=== PATIENT | female | born 1990 ===

== ENCOUNTER 2019-03-07 18:28 | Emergency (ER) | payer SELFPAY ==
--- NOTE | 2019-03-07 22:22 | Event Note ---
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 Further treatment and workup at subsequent clinical providers discretion. Patient/guardian urged not to elope from the ED as their condition may be serious if not clinically assessed and managed. Initial orders include:
[2019-03-08] MEDS ORDERED: CYCLOBENZAPRINE 10 MG TAB PO ONE (00:22)
[2019-03-08] MEDS ORDERED: ACETAMINOPHEN 500 MG TAB PO ONE (00:23)
--- NOTE | 2019-03-08 01:02 | Emergency Department Report ---
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 Patient states that the pain has been worsening and radiating to her right thigh. Patient denies numbness and tingling or weakness of lower extremities bilaterally, vaginal bleeding, abdominal pain, dizziness, syncope, chest pain, neck pain, head and neck injuries or bilateral shoulder pain, urinary or bowel incontinence and subtle paresthesia. Patient states that the pain is worse with ambulation. MD Complaint: back pain, fall, other (Slipped and fell down) -: Sudden, hour(s) (8) Similar Symptoms Previously: Yes Place: home Radiation: none Severity: moderate Severity scale (0 -10): 7 Quality: sharp, aching Consistency: constant Improves With: none Worsens With: movement, walking Context: turning/twisting, bending Associated Symptoms: denies other symptoms, difficulty walking. denies: confusion, weakness, chest pain, numbness, cough, difficulty urinating, diaphoresis, fever/chills, headaches, abdominal pain, nausea/vomiting, rash, shortness of breath, syncope - Related Data Previous Rx's Medication Instructions Recorded Last Taken Type Acetaminophen [8Hr Muscle 650 mg PO Q8H PRN #30 tablet.er 03/08/19 Unknown Rx Aches-Pain] methOCARBAMOL [Robaxin TAB] 500 mg PO Q8H PRN #21 tablet 03/08/19 Unknown Rx Allergies Allergy/AdvReac Type Severity Reaction Status Date / Time ketorolac [From Toradol] Allergy Unknown Verified 03/07/19 21:06 promethazine [From Phenergan] Allergy Unknown Verified 03/07/19 21:06 ED Review of Systems ROS: Stated complaint: BACK PAIN Other details as noted in HPI Constitutional: denies: chills, fever Eyes: denies: eye pain, eye discharge, vision change ENT: denies: ear pain, throat pain Respiratory: denies: cough, shortness of breath, wheezing Cardiovascular: denies: chest pain, palpitations Endocrine: no symptoms reported Gastrointestinal: denies: abdominal pain, nausea, diarrhea Genitourinary: denies: urgency, dysuria, discharge Musculoskeletal: back pain (lower back pain), arthralgia. denies: joint swelling Skin: denies: rash, lesions Neurological: denies: headache, weakness, paresthesias Psychiatric: denies: anxiety, depression Hematological/Lymphatic: denies: easy bleeding, easy bruising ED Past Medical Hx - Past Medical History Previous Medical History?: No - Surgical History Past Surgical History?: Yes Hx Cholecystectomy: Yes Additional Surgical History: left ovary removed - Social History Smoking Status: Never Smoker Substance Use Type: None - Medications Home Medications: Home Medications Medication Instructions Recorded Confirmed Last Taken Type Acetaminophen [8Hr Muscle 650 mg PO Q8H PRN #30 tablet.er 03/08/19 Unknown Rx Aches-Pain] methOCARBAMOL [Robaxin TAB] 500 mg PO Q8H PRN #21 tablet 03/08/19 Unknown Rx ED Physical Exam - General Limitations: No Limitations General appearance: alert, in no apparent distress - Head Head exam: Present: atraumatic, normocephalic, normal inspection - Eye Eye exam: Present: normal appearance, PERRL, EOMI Pupils: Present: normal accommodation - ENT ENT exam: Present: normal exam, normal orophraynx, mucous membranes moist, TM's normal bilaterally, normal external ear exam - Neck Neck exam: Present: normal inspection, full ROM - Respiratory Respiratory exam: Present: normal lung sounds bilaterally. Absent: respiratory distress, wheezes, rales, rhonchi, chest wall tenderness, accessory muscle use, decreased breath sounds - Cardiovascular Cardiovascular Exam: Present: regular rate, normal rhythm, normal heart sounds. Absent: systolic murmur, diastolic murmur, rubs, gallop - GI/Abdominal GI/Abdominal exam: Present: soft, normal bowel sounds. Absent: tenderness, guarding, hyperactive bowel sounds, hypoactive bowel sounds, mass - Extremities Exam Extremities exam: Present: normal inspection, full ROM, normal capillary refill - Back Exam Back exam: Present: normal inspection, tenderness (palpable lumbosacral paraspinal musculoskeletal tenderness), muscle spasm, paraspinal tenderness. Absent: full ROM (Limited range of motion due to pain), CVA tenderness (R), CVA tenderness (L), vertebral tenderness - Neurological Exam Neurological exam: Present: alert, oriented X3, CN II-XII intact, normal gait, reflexes normal - Psychiatric Psychiatric exam: Present: normal affect, normal mood - Skin Skin exam: Present: warm, dry, intact, normal color. Absent: rash ED Course Vital Signs 03/07/19 21:03 Temperature 98.3 F Pulse Rate 75 Respiratory 18 Rate Blood Pressure 117/73 O2 Sat by Pulse 100 Oximetry - Reevaluation(s) Reevaluation #1: 03/08/19 01:05 This is a 28-year-old female who is approximately 7 weeks gestation who presented to the ED with low back pain after she bent down and twisted her low back over 12 hours ago. In the ED, patient alert and oriented 3 and is nontender in distress but appears to be in pain. Patient was treated for pain in the ED with Tylenol and muscle relaxants. On reevaluation, patient's pain is moderately controlled, and was discharged home on pain medications and muscle relaxants and advised to follow-up with her primary care physician in 7-10 days for reevaluation or return to the ED immediately if symptoms get worse. ED Medical Decision Making - Medical Decision Making This is a 28-year-old female who is approximately 7 weeks gestation who presented to the ED with low back pain after she bent down and twisted her low back over 12 hours ago. In the ED, patient alert and oriented 3 and is nontender in distress but appears to be in pain. Patient was treated for pain in the ED with Tylenol and muscle relaxants. On reevaluation, patient's pain is moderately controlled, and was discharged home on pain medications and muscle relaxants and advised to follow-up with her primary care physician in 7-10 days for reevaluation or return to the ED immediately if symptoms get worse. - Differential Diagnosis Acute low back pain; Muscle spasm of back; Muscle strain of back Critical care attestation.: If time is entered above; I have spent that time in minutes in the direct care of this critically ill patient, excluding procedure time. ED Disposition Clinical Impression: Spasm of muscle of lower back Acute low back pain Qualifiers: Back pain laterality: unspecified Sciatica presence: without sciatica Qualified Code(s): M54.5 - Low back pain Disposition: TO HOME OR SELFCARE Is pt being admited?: No Does the pt Need Aspirin: No Condition: Stable Instructions: Muscle Spasm (ED), Acute Low Back Pain (ED) Additional Instructions: Take medication and food, drink plenty of fluids and follow up with your primary care physician in 7-10 days for reevaluation. Return to the ED immediately if symptoms get worse Prescriptions: Acetaminophen [8Hr Muscle Aches-Pain] 650 mg PO Q8H PRN #30 tablet.er PRN Reason: Pain , Severe (7-10) methOCARBAMOL [Robaxin TAB] 500 mg PO Q8H PRN #21 tablet PRN Reason: Muscle Spasm Referrals: PRIMARY CARE, [Primary Care Provider] - 3-5 Days Forms: Work/School Release Form(ED) Time of Disposition: 00:59 Print Language: CZECH
[2019-03-08 01:30] VITALS: BP 131/68
== END 2019-03-08 01:30 | disposition home or self-care (01) ==
LOC: ED 18:28
DX: O26.891 Other specified pregnancy related conditions, first trimester (principal); M54.5 Low back pain; Z3A.08 8 weeks gestation of pregnancy